=== PATIENT | female | born 1980 | race Caucasian/White ===

== ENCOUNTER 2020-04-16 11:20 | Emergency (ER) | payer SELFPAY ==
[~2020-04-16] VITALS: Ht 152.4 cm; Wt 68.2 kg
[~2020-04-16 11:20] MED LIST: ARIP2 PO; CLON1TAB13 PO; DULO30CA2 PO
[2020-04-16] MEDS ORDERED: HYDR50CA9 PO (11:26)
[2020-04-16] MEDS ORDERED: DICLOFENAC SODIUM 1% 100 GM GEL [2GM] TP ONE (12:30)
[2020-04-16 12:57] VITALS: BP 144/83
== END 2020-04-16 13:23 | disposition home or self-care (01) ==
LOC: EMS 11:22 → EDBD 11:22 → EMS 13:23
DX: S50.11XA Contusion of right forearm, initial encounter (principal); W19.XXXA Unspecified fall, initial encounter; F17.210 Nicotine dependence, cigarettes, uncomplicated; Y93.89 Activity, other specified; Y92.89 Other specified places as the place of occurrence of the external cause; Y99.8 Other external cause status
CPT/HCPCS: 99406

== ENCOUNTER 2020-12-31 11:18 | Emergency (ER) | payer OTHER ==
[~2020-12-31] VITALS: Ht 162.6 cm; Wt 68.2 kg
[~2020-12-31 11:18] MED LIST changes: +CLON-595 PO; -CLON1TAB13 PO; -DULO30CA2 PO; +DULO30CA96 PO; +HYDR50CA9 PO
[2020-12-31 11:54] VITALS: BP 141/99
== END 2020-12-31 12:42 ==
LOC: EMS 11:18
DX: F22 Delusional disorders (principal); F15.10 Other stimulant abuse, uncomplicated; F17.210 Nicotine dependence, cigarettes, uncomplicated
CPT/HCPCS: 99284; Z7502

== ENCOUNTER 2021-04-27 10:34 | Emergency (ER) | payer OTHER ==
[~2021-04-27] VITALS: Ht 165.1 cm; Wt 68.2 kg
[~2021-04-27 10:34] MED LIST changes: -ARIP2 PO; +ARIP2TAB27 PO
[2021-04-27 10:52] VITALS: BP 126/83
[2021-04-27 11:16] LABS: BASOPHILS % (AUTO) 0.6 % (0.0-2.0); EOSINOPHILS % (AUTO) 1.6 % (1.0-6.0); HEMATOCRIT 37.6 % (36-46); HEMOGLOBIN 12.1 g/dL (12.0-16.0); LYMPHOCYTES # (AUTO) 1.9 K/uL (1.0-4.8); LYMPHOCYTES % (AUTO) 22.9 % (22.0-44.0); MEAN CORPUSCULAR HGB CONC 32.3 G/dL (31.0-37.0); MEAN CORPUSCULAR VOLUME 81 fL (80-100); MONOCYTES # (AUTO) 0.7 K/uL (0.1-1.0); MONOCYTES % (AUTO) 8.1 % (2.0-9.0); NEUTROPHILS # (AUTO) 5.7 K/uL (1.8-7.7); NEUTROPHILS % (AUTO) 66.8 % (40.0-70.0); PLATELET COUNT (AUTO) 487 K/uL (150-450); RED BLOOD CELL COUNT(AUTO) 4.66 MIL/uL (4.00-5.20); RED CELL DISTRIBUTION WIDTH 14.2 % (11.5-14.5)
[2021-04-27 11:17] LABS: ANION GAP 10 mmol/L (8-16); CALCIUM, TOTAL 8.8 mg/dL (8.8-10.5); CARBON DIOXIDE 26 mmol/L (22-29); CHLORIDE 106 mmol/L (98-107); CREATININE 0.65 mg/dL (0.60-1.30); GLOMERULAR FILTR. RATE CALC > 60 mL/min (>60); GLUCOSE,RANDOM 107 mg/dL (70-110); POTASSIUM 3.6 mmol/L (3.5-5.1); SODIUM SERUM 142 mmol/L (136-145); UREA NITROGEN, BLOOD 21 mg/dL (7-18)
[2021-04-27 11:23] LABS: ALANINE AMINOTRANSFERASE 18 U/L (12-78); ALKALINE PHOSPHATASE 63 U/L (46-116); ASPARTATE AMINOTRANSFERASE 14 U/L (15-37); BILIRUBIN,TOTAL 0.3 mg/dL (0.1-1.0)
== END 2021-04-27 12:29 | disposition home or self-care (01) ==
LOC: EMS 10:39
DX: F69 Unspecified disorder of adult personality and behavior (principal); R45.851 Suicidal ideations; J45.909 Unspecified asthma, uncomplicated; F17.210 Nicotine dependence, cigarettes, uncomplicated; F12.90 Cannabis use, unspecified, uncomplicated
CPT/HCPCS: 36415; 80053; 85025; 99285; G0480

== ENCOUNTER 2021-10-10 21:23 | Emergency (ER) | payer OTHER ==
[~2021-10-10] VITALS: Ht 152.4 cm; Wt 64.0 kg
[~2021-10-10 21:23] MED LIST changes: +DULO30CA89 PO; -DULO30CA96 PO
[2021-10-10 21:37] VITALS: BP 140/85
== END 2021-10-10 21:56 | disposition home or self-care (01) ==
LOC: EMS 21:26
DX: F25.9 Schizoaffective disorder, unspecified (principal); F12.90 Cannabis use, unspecified, uncomplicated; F15.90 Other stimulant use, unspecified, uncomplicated; F17.210 Nicotine dependence, cigarettes, uncomplicated; J45.909 Unspecified asthma, uncomplicated; Z79.899 Other long term (current) drug therapy
CPT/HCPCS: 99283; Z7502

== ENCOUNTER 2021-12-25 15:41 | Emergency (ER) | payer OTHER ==
[~2021-12-25] VITALS: Ht 165.1 cm; Wt 72.7 kg
[~2021-12-25 15:41] MED LIST changes: +HYDR50CA7 PO; -HYDR50CA9 PO
[2021-12-25 17:30] VITALS: BP 149/88
== END 2021-12-25 18:54 | disposition left against medical advice (07) ==
LOC: EMS 16:01
DX: F41.9 Anxiety disorder, unspecified (principal); J45.909 Unspecified asthma, uncomplicated; F15.90 Other stimulant use, unspecified, uncomplicated; F12.90 Cannabis use, unspecified, uncomplicated; F17.210 Nicotine dependence, cigarettes, uncomplicated; Z79.899 Other long term (current) drug therapy
CPT/HCPCS: 99283